=== PATIENT | male | born 1945 | race Caucasian/White ===

== ENCOUNTER 2021-06-21 08:32 | Outpatient (REF) | payer MEDICARE, SELFPAY ==
[2021-06-21 11:29] LABS: MANUAL DIFF FLAG NO
[2021-06-21 11:32] LABS: Basophils Absolute Auto 0.1 X10*3/uL (0.0-0.2); Basophils Percent Auto 0.9 % (0-2); Eosinophils Absolute Auto 0.2 X10*3/uL (0.0-0.4); Eosinophils Percent Auto 3.5 % (0-4); Hematocrit 43.7 % (42.0-52.0); Hemoglobin 13.8 g/dl (14.0-18.0); Imm Gran Abs Auto 0.02 X10*3/uL (0.00-0.03); Imm Gran Pct Auto 0.4 % (0.0-0.4); Lymphocytes Absolute Auto 1.9 X10*3/uL (1.2-4.9); Lymphocytes Percent Auto 35.2 % (20-40); Mean Corpuscular HGB Conc 31.6 g/dl (31.0-36.0); Mean Corpuscular Hemoglobin 26.9 pg (27.0-33.0); Mean Corpuscular Volume 85.2 fL (80.0-98.0); Mean Platelet Volume 10.9 fL (9.4-12.4); Monocytes Absolute Auto 0.6 X10*3/uL (0.1-1.2); Monocytes Percent Auto 10.5 % (2-11); Neutrophils Absolute Auto 2.7 x10*3/uL (2.0-8.3); Neutrophils Percent Auto 49.5 % (45-73); Platelet Count 205 X10*3/uL (160-400); Red Blood Count 5.13 X10*6/uL (4.60-5.80); Red Cell Distribution Width 15.9 % (11.0-16.0); White Blood Count 5.4 X10*3/uL (4.8-10.8)
[2021-06-21 11:47] LABS: Alanine Aminotransferase 20 U/L (0-40); Albumin Level 4.1 g/dL (3.5-5.0); Alkaline Phosphatase 50 U/L (39-117); Anion Gap 10 (12-20); Aspartate Amino Transferase 20 U/L (5-37); Bilirubin Total 0.7 mg/dL (0.0-1.0); Blood Urea Nitrogen 23 mg/dL (9-16); Calcium 9.2 mg/dL (8.4-10.2); Carbon Dioxide 26 mmol/L (22-29); Chloride 109 mmol/L (96-108); Cholesterol 184 mg/dL; Estimated Glomerular Filt Rate > 60; Glucose Fasting 116 mg/dL (60-99); HDL Cholesterol 42 mg/dL; LDL Cholesterol Calculated 110 mg/dl; Potassium 4.3 mmol/L (3.3-5.1); Sodium 141 mmol/L (135-145); Total Protein 6.7 g/dL (6.5-8.0); Triglycerides 162 mg/dL
[2021-06-21 12:10] LABS: Thyroid Stimulating Hormone 2.31 uIU/mL (0.32-4.0); Vitamin D 25-OH Total 36.7 ng/mL (>30)
[2021-06-21 12:37] LABS: Vitamin B12 422 pg/mL (200-900)
[2021-06-21 12:41] LABS: Prostate Specific Antigen 1.03 ng/mL (<0.05-4.0)
== END 2021-06-21 08:33 | disposition home or self-care (01) ==
LOC: HO.MANLDS 08:32
PROVIDERS: PCP Internal Medicine; Visit Provider Internal Medicine
DX: Z00.01 Encounter for general adult medical examination with abnormal findings (principal); Z12.5 Encounter for screening for malignant neoplasm of prostate
CPT/HCPCS: 36415; 80053; 80061; 82306; 82607; 84153; 84443; 85025

== ENCOUNTER 2022-05-02 06:33 | Day surgery (SDC) | payer MEDICARE, SELFPAY ==
[2022-05-02 06:16] VITALS: BMI 35.2
[2022-05-02 06:41] VITALS: BP 132/80; PULSE 73; RESP 16; TEMP 36.6; O2SAT 96
--- NOTE | 2022-05-02 06:55 | ECG_ITS ---
Test Reason : ?BBB Blood Pressure : / mmHG Vent. Rate : 073 BPM Atrial Rate : 073 BPM P-R Int : 152 ms QRS Dur : 134 ms QT Int : 406 ms P-R-T Axes : 042 -36 001 degrees QTc Int : 447 ms Normal sinus rhythm Left axis deviation Right bundle branch block Abnormal ECG No previous ECGs available Referred By: Jasson Jarrett Electronically Signed By:ZACHARY MENJIVAR MD
[2022-05-02] MEDS: Lactated Ringers 1,000 ML 50 ML IVCONT (07:01)
--- NOTE | 2022-05-02 07:02 | PC.NURSE ---
dr zhu ordered ekg baseline rhythm nsr right bbb
--- NOTE | 2022-05-02 07:28 | HO.ANESPROP2 ---
HPI - Anesthesia Eval Consult details Narrative: 76 M for EGD [facility] Past Medical History Medical History (Updated 05/02/22 @ 07:09 by Eileen Dickinson, RN) Arthritis Greene esophagus GERD (gastroesophageal reflux disease) Hx of right bundle branch block Functional capacity: independent ambulation Family History Family history of problems with anesthesia: No Surgical History Surgical History (Updated 04/29/22 @ 12:30 by Marlen Graham RN) H/O colonoscopy H/O esophagogastroduodenoscopy H/O hand surgery History of Problems with Anesthesia: No Social History Social History Patient Tobacco Use Status: Never used Tobacco Meds Allergies Allergy/AdvReac Type Severity Reaction Status Date / Time No Known Allergies Allergy Verified 04/29/22 12:29 Active Medications: Current Medications Lactated Ringer's (Lr) 1,000 mls @ 50 mls/hr IVCONT .Q20H REED Last Admin: 05/02/22 07:01 Dose: 50 mls/hr Home Medications Medication Instructions Recorded Confirmed Last Taken Type omeprazole magnesium 20 mg 10 mg PO DAILY 04/29/22 05/02/22 05/01/22 History tablet,delayed release (Prilosec OTC) Exam Exam Date and Time: May 02, 2022 0728 Height,Weight and Vital Signs: Height 5 ft 5.5 in Weight 97.522 kg Last Vital Signs Temp 98 F 05/02/22 06:41 Pulse 73 05/02/22 06:41 Resp 16 05/02/22 06:41 BP 132/80 05/02/22 06:41 Pulse Ox 96 05/02/22 06:41 O2 Del Method 05/02/22 06:41 Airway Mallampati Class: IV TM Dist: >3cm Neck ROM: Full (thick neck ) Loose/Missing/Broken Teeth: Yes Heart: S1,S2 Lungs: distant breath sounds Assessment and Plan Assessment Anesthesia Assessment: Anesthesia Plan Discussed and Chart Reviewed Final Anesthetic Review Family History of Problems with Anesthesia: No History of Problems with Anesthesia: No NPO: Yes ASA Class: III Final Preanesthetic Review: Meds/Allgs Chart Reviewed, Consent Obtained/Reviewed and Anes Risks/Benef Reviewed Patient Risk: High Procedure Risk: Intermediate Anesthetic Plan Anesthetic Plan: MAC: Disposition: Standard PACU
--- NOTE | 2022-05-02 07:52 | HO.ANESPROP2 ---
FORM[facility]LY [facility], 1928–1983 Past Medical History Medical History (Updated 05/02/22 @ 07:09 by Eileen Dickinson RN) Arthritis Greene esophagus GERD (gastroesophageal reflux disease) Hx of right bundle branch block Functional capacity: independent ambulation Family History Family history of problems with anesthesia: No Surgical History Surgical History (Updated 04/29/22 @ 12:30 by Marlen Graham RN) H/O colonoscopy H/O esophagogastroduodenoscopy H/O hand surgery History of Problems with Anesthesia: No Social History Social History Patient Tobacco Use Status: Never used Tobacco Are you DNR?: No Advance Directives: No Advance Directives Information Provided: Yes Recently lost weight without trying: No Nutrition Risks: No Nutritional Risk Poor oral hygiene: No Meds Allergies Allergy/AdvReac Type Severity Reaction Status Date / Time No Known Allergies Allergy Verified 04/29/22 12:29 Active Medications: Current Medications Lactated Ringer's (Lr) 1,000 mls @ 50 mls/hr IVCONT .Q20H REED Last Admin: 05/02/22 07:01 Dose: 50 mls/hr Home Medications Medication Instructions Recorded Confirmed Last Taken Type omeprazole magnesium 20 mg 10 mg PO DAILY 04/29/22 05/02/22 05/01/22 History tablet,delayed release (Prilosec OTC) Exam Exam Date and Time: May 02, 2022 0752 Height,Weight and Vital Signs: Height 5 ft 5.5 in Weight 97.522 kg Last Vital Signs Temp 98 F 05/02/22 06:41 Pulse 73 05/02/22 06:41 Resp 16 05/02/22 06:41 BP 132/80 05/02/22 06:41 Pulse Ox 96 05/02/22 06:41 O2 Del Method 05/02/22 06:41 Assessment and Plan Final Anesthetic Review Family History of Problems with Anesthesia: No History of Problems with Anesthesia: No
[2022-05-02 08:15] VITALS: BP 90/52; PULSE 67; RESP 16; TEMP 36.4; O2SAT 99
--- NOTE | 2022-05-02 08:16 | PM.OP ---
Brief Operative Note Date of Service: 05/02/22 Pre-op diagnosis: Greene's Post-op diagnosis: other (Same, Hiatal hernia) Procedure: EGD with biopsies Surgeon: Artur Watson Anesthesia: MAC Was an Foot Orthopedist used for this Procedure?: No Estimated blood loss (mL): 2.0 Pathology: other (A. Esophagus 30-32cm B. Gastric polyps) Condition: stable Disposition: PACU
[2022-05-02 08:30] VITALS: BP 102/63; PULSE 67; RESP 16; O2SAT 99
--- NOTE | 2022-05-02 08:41 | OP_ITS ---
SURGEON: Artur Watson MD INDICATIONS: The patient presents for evaluation of gastroesophageal reflux and Greene's esophagus. Full consent has been obtained from him for this, including risks of bleeding and perforation. PREOPERATIVE DIAGNOSIS: POSTOPERATIVE DIAGNOSIS: PROCEDURE PERFORMED: Esophagogastroduodenoscopy with biopsies. ESTIMATED BLOOD LOSS: COMPLICATIONS: ANESTHESIA: Monitored anesthesia care. ASSISTANTS: SPECIMENS: PREOPERATIVE DIAGNOSES: 1. Greene's esophagus. 2. Gastroesophageal reflux. POSTOPERATIVE DIAGNOSES: 1. Greene's esophagus. 2. Gastroesophageal reflux. 3. Hiatal hernia. 4. Gastric polyps. DESCRIPTION OF PROCEDURE: The patient was placed in the left lateral decubitus position. The Olympus video gastroscope was passed in the posterior oropharynx and upper esophagus under direct vision. The scope was passed slowly into the distal esophagus. The gastroesophageal junction appeared at 32 cm. Extending from 32 to 30 cm was a noncircumferential segment of Greene's mucosa. There was no evidence of esophagitis, nor any lesions. The scope easily entered the stomach. There was a small to moderate sized hiatal hernia. The scope was advanced to the pylorus, and the duodenum was cannulated to the descending portion. The duodenum including the bulb appeared normal without mass or ulceration. The scope was withdrawn back in the stomach. The gastric antrum and body appeared normal with good peristalsis. The scope was retroflexed visualizing the proximal stomach carefully, which appeared normal, without mass or ulceration, other than hyperplastic appearing gastric polyps. Two of these were biopsied. The scope was straightened and withdrawn back to the esophagus. Multiple biopsies were obtained between 30 and 32 cm. Proximal to 30 cm, the esophageal mucosa appeared normal. The scope was withdrawn from the patient. He tolerated the procedure well and was returned and was returned to the recovery area in stable condition. IMPRESSION: 1. Greene's esophagus. 2. Hiatal hernia. 3. Gastric polyps. PLAN: The results of the biopsies will be checked. If there is no dysplasia within the Greene's esophagus, I would recommend a repeat upper endoscopy in 3 years. He will continue his daily Prilosec for symptomatic relief of reflux. This has been discussed with his . MD TJ Omer/ZACH / [id number] TAYLOR
[2022-05-02 08:45] VITALS: BP 107/59; PULSE 70; RESP 16; TEMP 36.9; O2SAT 95
== END 2022-05-02 09:14 | disposition home or self-care (01) ==
PROVIDERS: PCP Internal Medicine; Visit Provider Internal Medicine
PROC: 0DJ08ZZ Inspection of Upper Intestinal Tract, Via Natural or Artificial Opening Endoscopic (ICD-10-PCS; CPT 43235; principal; 2022-05-02 07:30)
DX: K22.70 Barrett's esophagus without dysplasia (principal); K21.9 Gastro-esophageal reflux disease without esophagitis; K31.7 Polyp of stomach and duodenum; K44.9 Diaphragmatic hernia without obstruction or gangrene; Z79.899 Other long term (current) drug therapy
CPT/HCPCS: 43239; 88305; 88342; 93005

== ENCOUNTER 2022-06-29 07:53 | Outpatient (REF) | payer MEDICARE, SELFPAY ==
[2022-06-29 11:16] LABS: MANUAL DIFF FLAG NO
[2022-06-29 11:40] LABS: Basophils Absolute Auto 0.1 X10*3/uL (0.0-0.2); Basophils Percent Auto 0.8 % (0-2); Eosinophils Absolute Auto 0.2 X10*3/uL (0.0-0.4); Hematocrit 43.3 % (42.0-52.0); Hemoglobin 13.6 g/dl (14.0-18.0); Imm Gran Abs Auto 0.01 X10*3/uL (0.00-0.03); Imm Gran Pct Auto 0.2 % (0.0-0.4); Lymphocytes Absolute Auto 2.5 X10*3/uL (1.2-4.9); Lymphocytes Percent Auto 41.6 % (20-40); Mean Corpuscular HGB Conc 31.4 g/dl (31.0-36.0); Mean Corpuscular Hemoglobin 26.5 pg (27.0-33.0); Mean Corpuscular Volume 84.4 fL (80.0-98.0); Mean Platelet Volume 11.4 fL (9.4-12.4); Monocytes Absolute Auto 0.6 X10*3/uL (0.1-1.2); Monocytes Percent Auto 10.5 % (2-11); Neutrophils Absolute Auto 2.6 x10*3/uL (2.0-8.3); Neutrophils Percent Auto 43.9 % (45-73); Platelet Count 192 X10*3/uL (160-400); Red Blood Count 5.13 X10*6/uL (4.60-5.80); Red Cell Distribution Width 15.1 % (11.0-16.0); White Blood Count 5.9 X10*3/uL (4.8-10.8)
[2022-06-29 12:31] LABS: Alanine Aminotransferase 15 U/L (0-40); Alkaline Phosphatase 60 U/L (39-117); Anion Gap 11 (12-20); Aspartate Amino Transferase 17 U/L (5-37); Bilirubin Total 0.8 mg/dL (0.0-1.0); Blood Urea Nitrogen 28 mg/dL (9-16); Calcium 8.9 mg/dL (8.4-10.2); Carbon Dioxide 26 mmol/L (22-29); Chloride 110 mmol/L (96-108); Cholesterol 188 mg/dL; Estimated Glomerular Filt Rate > 60; Glucose Random 120 mg/dL (60-115); HDL Cholesterol 41 mg/dL; LDL Cholesterol Calculated 116 mg/dl; Potassium 4.2 mmol/L (3.3-5.1); Sodium 143 mmol/L (135-145); Total Protein 6.3 g/dL (6.5-8.0); Triglycerides 155 mg/dL
[2022-06-29 12:39] LABS: Vitamin B12 375 pg/mL (200-900); Vitamin D 25-OH Total 37.1 ng/mL (>30)
== END 2022-06-29 07:54 | disposition home or self-care (01) ==
LOC: HO.MANLDS 07:53
PROVIDERS: Visit Provider Internal Medicine
DX: Z00.00 Encounter for general adult medical examination without abnormal findings (principal); Z12.5 Encounter for screening for malignant neoplasm of prostate; E55.9 Vitamin D deficiency, unspecified; E78.00 Pure hypercholesterolemia, unspecified; D64.9 Anemia, unspecified
CPT/HCPCS: 36415; 80053; 80061; 82306; 82607; 84153; 85025

== ENCOUNTER 2022-07-06 07:42 | Outpatient (REF) | payer MEDICARE, SELFPAY | END 2022-07-06 07:43 | disposition home or self-care (01) | LOC: HO.MANLDS 07:42 | PROVIDERS: Visit Provider Internal Medicine | DX: Z13.89 Encounter for screening for other disorder (principal) ==

== ENCOUNTER 2022-07-08 08:23 | Outpatient (REF) | payer MEDICARE, SELFPAY ==
[2022-07-08 12:35] LABS: Estimated Average Glucose 120 mg/dL; Hemoglobin A1c % 5.8 %
== END 2022-07-08 08:24 | disposition home or self-care (01) ==
LOC: HO.MANLDS 08:23
PROVIDERS: Visit Provider Internal Medicine
DX: R73.01 Impaired fasting glucose (principal)
CPT/HCPCS: 36415; 83036

== ENCOUNTER 2024-07-23 07:30 | Outpatient (REF) | payer MEDICARE, SELFPAY ==
--- OUTSIDE RECORDS SUMMARY | 2024-07-23 07:33 | XMS_ITS | Data Portability ---
Author Organization [facility] Address [address] [place] [address] Assessment Encounter Date Assessment Date Assessment LastModified by Organization Details LastModified Time 01/06/2023 01/06/2023 [id number] [place] [id number] (INSURANCE ADVISOR) MDM MODERATE MUST MEET 2 OUT OF 3 ELEMENTS: PROBLEMS, DATA OR RISK ELEMENT 1: PROBLEMS ADDRESSED 1 OR MORE CHRONIC ILLNESS WITH EXACERBATION OR 2 OR MORE STABLE CHRONIC ILLNESSES OR 1 UNDIAGNOSED NEW PROBLEM OR 1 ACUTE ILLNESS W/SYMPTOMS OR 1 ACUTE COMPLICATED INJURY ELEMENT 2: DATA MUST MEET 1 OF 3 CATEGORIES CATEGORY 1: REVIEW OF PRIOR EXTERNAL NOTES, REVIEW OF RESULTS, ORDERING OF EACH TEST, ASSESSMENT REQUIRING INDEPENDENT HISTORIAN OR CATEGORY 2: INDEPENDENT INTERPRETATION OF TESTS BY ANOTHER PHYSICIAN OR SPECIALIST OR CATEGORY 3: DISCUSSION OF MGT OR TEST INTERPRETATION W/EXTERNAL PHYSICIAN OR SPECIALIST ELEMENT 3: RISK RISK OF COMPLICATIONS AND/OR MORBIDITY OR MORTALITY OF PATIENT MANAGEMENT PROVIDER MUST THOROUGHLY DOCUMENT EACH ELEMENT THAT IS COVERED Not available 01/06/2023 14:46:08 07/03/2023 07/03/2023 [id number] [place] [id number] (INSURANCE ADVISOR) MDM MODERATE MUST MEET 2 OUT OF 3 ELEMENTS: PROBLEMS, DATA OR RISK ELEMENT 1: PROBLEMS ADDRESSED 1 OR MORE CHRONIC ILLNESS WITH EXACERBATION OR 2 OR MORE STABLE CHRONIC ILLNESSES OR 1 UNDIAGNOSED NEW PROBLEM OR 1 ACUTE ILLNESS W/SYMPTOMS OR 1 ACUTE COMPLICATED INJURY ELEMENT 2: DATA MUST MEET 1 OF 3 CATEGORIES CATEGORY 1: REVIEW OF PRIOR EXTERNAL NOTES, REVIEW OF RESULTS, ORDERING OF EACH TEST, ASSESSMENT REQUIRING INDEPENDENT HISTORIAN OR CATEGORY 2: INDEPENDENT INTERPRETATION OF TESTS BY ANOTHER PHYSICIAN OR SPECIALIST OR CATEGORY 3: DISCUSSION OF MGT OR TEST INTERPRETATION W/EXTERNAL PHYSICIAN OR SPECIALIST ELEMENT 3: RISK RISK OF COMPLICATIONS AND/OR MORBIDITY OR MORTALITY OF PATIENT MANAGEMENT PROVIDER MUST THOROUGHLY DOCUMENT EACH ELEMENT THAT IS COVERED Not available 07/03/2023 11:31:15 07/09/2024 07/09/2024 Patient presente d to office today for their Medicare Annual Wellness Visit. Education was provided on healthy nutrition, including a diet rich in fruits and vegetables, minimizing simple carbohydrates, salt, and saturated fats. Encouraged regular cardiovascular exercise such as walking at least 30 minutes daily, 5 times per week. Emphasized preventive health measures and educated pt on fall prevention and community-based lifestyle interventions to help reduce health risks and promote healthy living. [email or web address] Not available 07/02/2024 08:09:50 Plan of Treatment Reminders Order Date Submit Date Provider Last Modified By Organization Details Last Modified Time Details Appointments MEDICARE ANNUAL WELLNESS 2025 11:00A M DR YOUNG Not available Not available Not available Lab lipid panel, blood 2024 025 [facility], [address] [place] [address], [id number], 07/09/2024 11:02:24 PSA, serum or plasma 2024 025 [facility], [address] [place] [address], [id number], 07/09/2024 11:02:24 CBC 2024 025 [facility], [address] [place] [address], [id number], 07/09/2024 11:02:24 CMP, serum or plasma 2024 025 [facility], [address] [place] [address], [id number], 07/09/2024 11:02:24 CMP, serum or plasma 2022 023 [facility], [address] [place] [address], [id number], 06/30/2022 11:08:22 CBC w/ auto diff 2022 023 [facility], [address] [place] [address], [id number], 06/28/2022 10:35:20 PSA, serum or plasma 2022 023 [facility], [address] [place] [address], [id number], 06/28/2022 10:35:20 lipid panel, blood 2022 023 [facility], [address] [place] [address], [id number], 06/28/2022 10:35:20 vitamin D, 25-hydrox y, total, serum 2022 023 [facility], [address] [place] [address], [id number], 06/28/2022 10:35:20 vitamin B12, serum 2022 023 [facility], [address] [place] [address], [id number], 06/28/2022 10:35:20 Referral dermatolo gist referral 2022 023 [facility], [address], [place], [address], 02/06/2023 08:31:12 dermatolo gist referral 2022 023 [facility], [address], [place], [address], 02/06/2023 08:31:38 Procedures None recorded. Surgeries None recorded. Imaging XR, elbow, 3 or more view 2024 025 [facility] Central Scheduling (Not Breast), [address] [place], [address], 06/06/2024 14:06:37 exercise stress test 2022 023 [email or web address] Not available 01/20/2023 09:00:07 Medication Orders pantopraz ole 40 mg tablet,de layed release 2023 024 ROSEANNA [id number], [address], [place], [id number], 07/03/2023 11:45:08 lisinopri l 5 mg tablet 2022 023 fabrice [facility] #[id number], [address], [place], [id number], 07/03/2023 10:55:12 Patient TargetsNo targets recorded. Patient Instructions Encounter Date Encounter Id Patient Instructions Last Modified By Organization Details Last Modified Time 06/28/2022 [id number] high blood pressure: care instructions Not available 06/28/2022 10:36:28 learning about high blood pressure Not available 06/28/2022 10:36:28 01/06/2023 [id number] chest pain: care instructions Not available 01/06/2023 14:45:44 07/03/2023 [id number] perez's esophagus: care instructions Not available 07/03/2023 11:35:42 07/09/2024 [id number] advance care planning: care instructions Not available 07/09/2024 11:01:06 Discussed and explained advance directives such as standard forms to the {{patient caregiv er patient and caregiver}}. Face to face discussion lasted for a duration of ___ minutes. [email or web address] Not available 07/02/2024 08:09:50 Reason for Referral Infusion Pharmacist Referral for L esion of skin of face Referring Physician: Gordon Young, Internal Medicine, Encounter Date: 01/06/2023 Infusion Pharmacist Referral for B enign neoplasm of skin of forearm Referring Physician: Gordon Young, [facility], Encounter Date: 01/06/2023 Results Created Date Observation Date Name Description Value Unit Range Abnormal Flag Note LastModifiedBy Organization Detail LastModifiedTime 02/01/20 23 01/26/2023 exerc ise stres s test No observ ation record ed. [facility] [address], [place], [address], 07/03/2023 11:27:19 04/07/19 24 04/06/2023 US, echoc ardio gram No observ ation record ed. [facility] [address], [place], [address], 07/03/2023 11:27:19 10/18/19 24 10/18/2023 US, echoc ardio gram No observ ation record ed. [email or web address] [facility] [address], [place], [address], 10/18/2023 13:29:16 06/07/19 25 06/05/2024 XR, elbow , 3 or more view No observ ation record ed. [email or web address] [address], [place], [address], 06/07/2024 12:46:45 06/11/19 25 06/07/2024 US, echoc ardio gram No observ ation record ed. [email or web address] [facility] [address], [place], [address], 06/10/2024 14:59:53 Result Notes None recorded. Problems Name Problem SNOMED Code Status Onset Date Resolution Date Notes Provider Name and Address Organization Details Recorded Time Perez's esophagus 129969534 Active 2017 Not Available [facility] 0 12:13:41 Iron deficienc y 08378751 Active 2017 Not Available [facility] 0 12:13:41 Rosacea, erythemat ous telangiec tatic type 584510 Active 2017 Not Available [facility] 0 12:13:41 Ganglion cyst of right hand 337427632588 107 Active 2021 YSABEL JONES [address] [place], [address], [place] [facility] 2 14:11:41 Essential hypertens ion 26613651 Active 2022 Gordon Young, DO [address] [place] [address], [phone], [facility] 3 10:34:06 Chest pain 44855590 Active 2022 Gordon Young, DO [address] [place] [address], [address], [facility] 3 14:44:23 Benign neoplasm of skin of forearm 64024976 Active 2022 Gordon Montenegromarybeth, DO [address] [place] [address], [phone], [facility] 3 14:47:03 Lesion of skin of face 665862368135 Active 2022 Gordon Keyla Young, DO [address] [place] [address], [address], [facility] 3 14:47:35 Dyspnea on exertion 73811315 Active 2022 YSABEL JONES [address] [place] [address], [address], [facility] 3 15:19:26 Ascending aorta dilatatio n 670470110 Active 2023 Gordon Young, DO [address] [place] [address], [address], [facility] 4 11:39:14 Pain of right elbow joint 370676289861 97143 Active 2024 YSABEL JONES [address] [place] [address], [address], [facility] 5 11:39:17 Problem Notes None recorded. Procedures Surgical History None recorded. Imaging Results Imaging Date Name Status LastModified by Organization Details LastModified Time 01/26/2023 exercise stress test completed [address] [facility] [address], [place], [address], 07/03/2023 11:27:19 04/06/2023 US, echocardiogram completed [facility] [address], [place], [address], 07/03/2023 11:27:19 10/18/2023 US, echocardiogram completed [email or web address] [facility] [address], [place], [address], 10/18/2023 13:29:16 06/05/2024 XR, elbow, 3 or more view completed [email or web address] [facility] [address] [facility], [place], [address], 06/07/2024 12:46:45 06/07/2024 US, echocardiogram completed [email or web address] [facility] [address], [place], [address], 06/10/2024 14:59:53 Procedure Notes None recorded. Medical Equipment None Reported. Allergies No known drug allergies Medications Name Sig Start Date Stop Date Status Note LastModified by Organization Details LastModified Time meloxicam 15 mg tablet TAKE 1 TABLET BY MOUTH DAILY AFTER A MEAL. STOP IF STOMACH UPSET OCCURS OR 1 TIME HEEL PAIN IS GONE 12/22 completed Not Available Not Available Not Available ondansetron HCl 4 mg tablet 01/15 completed Not Available Not Available Not Available Prilosec 20 mg capsule,del ayed release Take 1 capsule every day by oral route. 07/02 completed Not Available Not Available Not Available omeprazole 40 mg capsule,del ayed release Take 1 capsule every day by oral route for 90 days. 07/02 completed Not Available Not Available Not Available tramadol 50 mg tablet 06/28 completed Not Available Not Available Not Available pantoprazol e 40 mg tablet,devendra yed release TAKE 1 TABLET BY MOUTH EVERY DAY active Not Available Not Available No t Available lisinopril 5 mg tablet TAKE 1 TABLET BY MOUTH EVERY DAY 07/02 completed Not Available Not Available Not Available metronidazo le 0.75 % topical gel APPLY TWICE A DAY DIRECTED active Not Available Not Available No t Available Boostrix Tdap 2.5 Lf unit-8 mcg-5 Lf/0.5 mL intramuscul ar syringe 01/15 completed Not Available Not Available Not Available iron active Not Available Not Availa ble Not Available ferrous sulfate 324 mg (65 mg iron) tablet,devendra yed release twice a week 06/15 completed Not Available Not Available Not Available Eye Drops (tetrahydro zoline) active Not Available Not Available Not Available Shingrix (PF) 50 mcg/0.5 mL intramuscul ar suspension, kit 01/15 completed Not Available Not Available Not Available Vitals Date Recorded Body height Body mass index (BMI) Body weight Heart rate Oxygen saturation Oxygen saturation in Arterial blood by Pulse oximetry Systolic blood pressure Diastolic blood pressure Provider Name and Address Organization Details Last Updated DateTime 3 165.74 cm 36.8 kg/m2 212070. 66 g 85 /min 97 % 97 % 148 mm[Hg] 80 mm[Hg] Gordon Young, DO [address] [place], [address] [place] [address] [facility] 3 10:07:01 Date Recorded Body height Body mass index (BMI) Body weight Heart rate Oxygen saturation Oxygen saturation in Arterial blood by Pulse oximetry Systolic blood pressure Diastolic blood pressure Provider Name and Address Organization Details Last Updated DateTime 3 165.74 cm 37.2 kg/m2 552289. 28 g 100 /min 95 % 95 % 130 mm[Hg] 80 mm[Hg] Lisa Tomlin [facility] 3 14:29:34 Date Recorded Body height Body mass index (BMI) Body weight Heart rate Oxygen saturation Oxygen saturation in Arterial blood by Pulse oximetry Systolic blood pressure Diastolic blood pressure Provider Name and Address Organization Details Last Updated DateTime 4 165.74 cm 33 kg/m2 16409.4 7 g 94 /min 95 % 95 % 100 mm[Hg] 70 mm[Hg] Lisa Tomlin [facility] 4 10:56:49 Date Recorded Body height Body mass index (BMI) Body weight Heart rate Oxygen saturation Oxygen saturation in Arterial blood by Pulse oximetry Systolic blood pressure Diastolic blood pressure Provider Name and Address Organization Details Last Updated DateTime 5 166.37 cm 33.1 kg/m2 89770.6 6 g 76 /min 97 % 97 % 142 mm[Hg] 84 mm[Hg] YSABEL JONES [address] [place], [address] COLBY Crooks [facility] 5 11:18:03 Date Recorded Body height Body mass index (BMI) Body weight Heart rate Oxygen saturation Oxygen saturation in Arterial blood by Pulse oximetry Systolic blood pressure Diastolic blood pressure Provider Name and Address Organization Details Last Updated DateTime 5 166.37 cm 33.1 kg/m2 26331.6 6 g 87 /min 95 % 95 % 130 mm[Hg] 70 mm[Hg] [facility] 5 10:37:09 Social History Question Answer Notes LastModified by [employer] Details LastModified Time Tobacco Smoking Status Never Smoker Not Available [facility] 01/28/2020 03:36:24 What Is Your Level Of Alcohol Consumption? Occasional [id number] Information not available 01/28/2020 What Is Your Level Of Caffeine Consumption? Moderate 2-3 Cups Per Day [id number] Information not available 01/28/2020 What Was The Date Of Your Most Recent Tobacco Screening? 07/09/2024 [email or web address] Information not available 07/09/2024 How Much Tobacco Do You Smoke? No [id number] Information not available 01/28/2020 Do You Or Have You Ever Used Any Other Forms Of Tobacco Or Nicotine? No Information not available 06/28/2022 Sex: Unknown Functional Status Question Answer Note LastModified by [employer] Details LastModified Time What is your exercise level? Moderate 3 mile walk 6 days per week [id number] Information not available 01/28/2020 Mental Status None recorded. Family History Nothing Reported. Medical History No medical history recorded. Immunizations Vaccine Type Date Status Note Provider Nam e and Address Organization Details Recorded Time Tdap 8 completed Not Available [facility] 04/17/2023 11:21:58 Influenza, split virus, quadrivalent, preservative 8 completed Not Available [facility] 04/17/2023 11:21:58 COVID-19, mRNA, LNP-S, PF, 30 mcg/0.3 mL dose 1 completed Not Available [facility] 04/17/2023 11:21:58 COVID-19, mRNA, LNP-S, PF, 30 mcg/0.3 mL dose 1 completed Not Available [facility] 04/17/2023 11:21:58 COVID-19, mRNA, LNP-S, PF, 30 mcg/0.3 mL dose 1 completed Not Available [facility] 04/17/2023 11:21:58 Influenza, split virus, quadrivalent, preservative 1 completed Not Available [facility] 04/17/2023 11:21:58 zoster live 9 completed Not Available [facility] 04/17/2023 11:21:58 Influenza, split virus, quadrivalent, preservative 9 completed Not Available [facility] 04/17/2023 11:21:58 zoster live 9 completed Not Available [facility] 04/17/2023 11:21:59 Influenza, split virus, quadrivalent, preservative 0 completed Not Available [facility] 04/17/2023 11:21:58 Past Encounters Encounter ID Performer Location Encounter Start Date Encounter Closed Date Diagnosis/Indication Diagnosis SNOMED-CT Code Diagnosis ICD10 Code Diagnosis Note [id number] Gordon Young [facility] [address] [place] [address], [place] [address] 10/31/2017 09:54:54 10/31/2017 12:45:03 Adult health examination 692771925 Z00.00 excellent job doing great remains active and is only due for colonoscop y soon Active or passive immunization 371383478 Z23 talked about getting new shingles vacc and tdap Rosacea, e rythematous telangiectatic type 112050 L71.8 [id number] Gordon Young [facility] [address] [place] [address], [employer] [place] [address] 01/15/2019 11:45:33 01/15/2019 13:37:20 Adult health examination 082170900 Z00.00 excellent job doing great remains active and is only due for colonoscop y soon Active or passive immunization 424951674 Z23 talked about getting new shingles vacc and tdap [id number] Gordon Young [facility] [address] [facility] [address] [address] 06/15/2021 10:21:59 06/15/2021 11:07:37 Active or passive immunization 259482745 Z23 talked about getting new shingles vacc and tdap Adult heal th examination 746976170 Z00.01 excellent job doing great remains active and is only due for colonoscop y soon [id number] YSABEL JONES [facility] [address] [facility] [address] [address] 12/22/2021 13:57:20 12/22/2021 14:29:49 Ganglion cyst of right hand 1653849265 89030 M67.441 will set up with new ortho surgeonmalu chino with patient if any questions [id number] Gordon Young [facility] Internal [facility] [address] [facility],[place] [address] 06/28/2022 09:57:16 06/28/2022 11:22:52 Active or passive immunization 889648653 Z23 talked about getting new shingles vacc and tdap Adult heal th examination 907530330 Z00.00 excellent job doing great remains active and is only due for colonoscop y soon Essential hypertension 08942922 I10 [id number] Gordon Young [facility] [address] [facility],[place] [address] 01/06/2023 14:17:38 01/10/2023 10:34:06 Essential hypertension 43473799 I10 bps are great Chest pain 78900588 R07. 9 Benign carol plasm of skin of forearm 58668268 D23.61 Lesion of skin of face 1957706495 06 L98.9 [id number] Gordon Young [facility] [address] [facility] [address] [address] 07/03/2023 10:47:50 07/03/2023 11:46:36 Essential hypertension 46979657 I10 bps are great no treatment needed s bp is 100!!! Perez's esophagus 3029 78081 K22.70 needs to cont on this Ascending aorta dilatation 848206337 I77.810 last was 4.3 getting echo this september [id number] YSABEL JONES [facility] [address] [address] 06/05/2024 10:51:16 06/05/2024 15:14:48 Pain of right elbow joint 7911361490 5733194 M25.521 will set up with XR r/o fracture Fall W19.XXXA will set up with XR [id number] Gordon Young DO [facility] [address] [facility] [address],[place] [address] 07/09/2024 10:27:32 07/09/2024 13:40:36 Adult health examination 452886840 Z00.00 excellent job doing great remains active and is only due for colonoscop y soon Screening for cardiovascular system disease 552955384 Z13.6 Screening for malignant neoplasm of colon 419769757 Z12.11 colonoscop y sched for this year Essential hypertension 17391346 I10 bps are great no treatment needed s bp is 100!!! Rosacea, e rythematous telangiectatic type 876783 L71.8 stable Pain of ri ght elbow joint 5659069433 0722911 M25.521 resolved Ascending aorta dilatation 653665819 I77.810 last was 4.3 getting echo this september Health Concerns Section Related Observation LastModified by Organization Detai ls LastModified Time None Recorded Concern Status LastModified by Organization Details LastModified Time None Recorded Advance Directives Directive None Recorded Payers Encounter Date Sequence Insurance Name Policy Number Policy Strickland Covered Member ID Strickland Member ID Guarantor Name 06/28/2022 1 MEDICARE B-DE: [employer] Cole A Chelle [id number] Cole A [place] 06/28/2022 2 [employer] - OPTIONS Cole A [place] [id number] Cole A [place] 01/06/2023 1 MEDICARE B-DE: [employer] Cole A Chelle [id number] Cole A [place] 01/06/2023 2 [employer] - OPTIONS Cole A [place] [id number] Cole A [place] 07/03/2023 1 MEDICARE B-DE: [facility] Cole Waller [place] [id number] Cole Waller [place] 07/03/2023 2 [employer] - OPTIONS Cole Waller [place] [id number] Cole Waller [place] 06/05/2024 1 MEDICARE B-DE: [facility] Cole Waller [place] [id number] Cole Waller [place] 06/05/2024 2 [employer] - OPTIONS Cole Waller [place] [id number] Cole Waller [place] 07/09/2024 1 MEDICARE B-DE: [facility] Cole Waller [place] [id number] Cole Waller [place] 07/09/2024 2 [employer] - OPTIONS Cole Waller [place] [id number] Cole Waller [place] Notes Date Note Type Note Provider Name and Address Organization Details Recorded Time 3 text/htm l here for annual doing ok overallhad egd done in apr and had ecg done afterwardshad a left axis and RBBB but otherwise is goodhome bps are elevated and correspond with oursand has noticed bps 150s / 70-80s and this has been consistentno cp no sob Gordon Young DO [address] [place], [address], [facility] 06/28/2022 10:37:33 3 text/htm l Care Management - HypertensionReported bypatient.Self Care:not under emotional stress Severity:symptoms are improving; does not interfere with daily activities Associated Symptoms:no dizziness; no lightheadedness; no chest pain; no shortness of breath; no palpitations; no edema; no calf muscle cramps; no blurred vision; no confusion; no headaches; no fatigue here for rechk and has been doing ok overalland relates he has had some prob with a funny cp and has had a prob with some cp relates is a dull discomforthas some sob as well if he exerts himselfotherwise is good fweel s well sleep is gppdbowels okprilosec at 42 is doing better for his sx of HH and coughhome bps are avg 114/72 Gordon Young DO [address] [place], [address], [facility] 01/06/2023 14:50:17 4 text/htm l Care Management - HypertensionReported bypatient.Self Care:not under emotional stress Severity:symptoms are improving; does not interfere with daily activities Associated Symptoms:no dizziness; no lightheadedness; no chest pain; no shortness of breath; no palpitations; no edema; no calf muscle cramps; no blurred vision; no confusion; no headaches; no fatigue here for rechk doing ok lost 25 lbs doing good and is eating righthad skin basal cancer treated recently has uterine ca and he is caring for her Gordon Young, DO [address] [place], [address], [facility] 07/03/2023 11:39:57 5 text/htm l c/o right elbow pain the patient reports that he fell on a piece of ice a few days agolanded directly onto hit right elbowno LOC or head injurydid twist his back trying to get up but no direct injurymild discomfort in the low back and left hip, much better with APAP elbow pain is peristent, worse with supination, pronationtenderness and swelling around the joint has some bruising and scuffs recommended XR, r/o fx YSABEL JONES [address] [place], [address], [facility] 06/05/2024 13:22:01 5 text/htm l Care Management - HypertensionReported bypatient.Self Care:not under emotional stress Severity:symptoms are improving; does not interfere with daily activities Associated Symptoms:no dizziness; no lightheadedness; no chest pain; no shortness of breath; no palpitations; no edema; no calf muscle cramps; no blurred vision; no confusion; no headaches; no fatigueGeneral Rash/Skin LesionReported bypatient.Quality:no itchy; not painful Context:no new detergents or skin products; no one else with similar rash Aggravating factors:nothing makes it worse Associated Symptoms:no fever; no cold symptoms; no nausea; no vomiting; no diarrhea; no urinary symptomsMedicare Annual Wellness VisitReported bypatient.Diet and Nutrition:healthy diet Fracture Risk:no history of fractures; no recent explained fracture; no sudden unexplained fractures; no previous musculoskeletal injuries Physical Activity:exercises on a regular basis; recent increase in physical activity; good physical condition Depression Risk:never feels sad, empty, or tearful; no loss of interest in activities; no significant changes in weight; no sleep disturbances or insomnia; no agitation; no loss of energy; no feelings of worthlessness or guilt; no thoughts of suicide; no history of depression; no history of mood disorders Orientation:no disorientation to time; no disorientation to date; no disorientation to place Concentration and Memory:no decreased concentrating ability; no memory lapses or loss; does not forget words Speech/Motor difficulties:no speech difficulties; no difficulty expressing formulated concepts; no difficulty with fine manipulative tasks; no difficulty writing/copying; no slowed reaction time; does not knock things over when trying to pick them up Hearing:no loss of hearing Vision:no vision problems Activities of Daily Living:able to bathe with limited or no assistance; able to contol urination and bowels; able to dress with limited or no assistance; able to feed self with limited or no assistance; able to get out of chair or bed with limited or no assistance; able to groom with limited or no assistance; able to toilet with limited or no assistance Instrumental Activities of Daily Living:able to do house work with limited or no assistance; able to grocery shop with limited or no assistance; able to manage medications with limited or no assistance; able to manage money with limited or no assistance; able to prepare meals with limited or no assistance; able to use the phone with limited or no assistance Falls Risk Assessment:no frequent falls while walking; no fall in the past year; no fall since last visit; no dizziness/vertigo Home Safety:no unsafe nidhi hazzards; no unsafe stairs; no unsafe gas appliances; working smoke/CO detectors; wears protective head gear for biking/high velocity; use of seatbelts; practicing 'safer sex'; no vision or hearing loss while driving; no fire arms; has hand bars in the bathroom/shower; good lighting in the homeMusculoskeletal PainReported bypatient.Location:pain is not radiating Severity:improving Associated Symptoms:no fever; no weak limbs; no tingling; no numbness of the legs/feet; no incontinence ADL (Activities of Daily Living)improve with medication doing well no major issues some discomfort to left ear Gordon Young, DO [address] [facility], [place], [id number], [facility] 07/09/2024 11:02:35
[2024-07-23 13:12] LABS: MANUAL DIFF FLAG NO
[2024-07-23 13:18] LABS: Basophils Absolute Auto 0.1 X10*3/uL (0.0-0.2); Basophils Percent Auto 0.9 % (0-2); Eosinophils Absolute Auto 0.2 X10*3/uL (0.0-0.4); Eosinophils Percent Auto 2.7 % (0-4); Hemoglobin 16.2 g/dl (14.0-18.0); Imm Gran Abs Auto 0.03 X10*3/uL (0.00-0.03); Imm Gran Pct Auto 0.5 % (0.0-0.4); Lymphocytes Absolute Auto 2.2 X10*3/uL (1.2-4.9); Lymphocytes Percent Auto 39.4 % (20-40); Mean Corpuscular HGB Conc 33.1 g/dl (31.0-36.0); Mean Corpuscular Hemoglobin 30.8 pg (27.0-33.0); Mean Corpuscular Volume 93.2 fL (80.0-98.0); Mean Platelet Volume 10.7 fL (9.4-12.4); Monocytes Absolute Auto 0.6 X10*3/uL (0.1-1.2); Neutrophils Absolute Auto 2.6 x10*3/uL (2.0-8.3); Neutrophils Percent Auto 46.5 % (45-73); Platelet Count 147 X10*3/uL (160-400); Red Blood Count 5.26 X10*6/uL (4.60-5.80); Red Cell Distribution Width 13.8 % (11.0-16.0); White Blood Count 5.5 X10*3/uL (4.8-10.8)
[2024-07-23 13:47] LABS: Alanine Aminotransferase 24 U/L (0-40); Albumin Level 4.1 g/dL (3.5-5.0); Alkaline Phosphatase 49 U/L (39-117); Anion Gap 9 (12-20); Aspartate Amino Transferase 31 U/L (5-37); Bilirubin Total 0.9 mg/dL (0.0-1.0); Blood Urea Nitrogen 28 mg/dL (9-16); Calcium 8.9 mg/dL (8.4-10.2); Carbon Dioxide 29 mmol/L (22-29); Chloride 109 mmol/L (96-108); Cholesterol 183 mg/dL (<200); Estimated Glomerular Filt Rate > 60; Glucose Fasting 114 mg/dL (60-99); HDL Cholesterol 50 mg/dL (>40); LDL Cholesterol Calculated 108 mg/dL (<100); Potassium 4.3 mmol/L (3.3-5.1); Sodium 143 mmol/L (135-145); Total Protein 6.7 g/dL (6.5-8.0); Triglycerides 125 mg/dL (<150)
[2024-07-23 13:51] LABS: Prostate Specific Antigen 1.03 ng/mL (<0.05-4.0)
== END 2024-07-23 07:31 | disposition home or self-care (01) ==
LOC: HO.MANLDS 07:30
PROVIDERS: Visit Provider Internal Medicine
DX: Z12.5 Encounter for screening for malignant neoplasm of prostate (principal); Z13.6 Encounter for screening for cardiovascular disorders; I10 Essential (primary) hypertension
CPT/HCPCS: 36415; 80053; 80061; 84153; 85025